=== PATIENT | female | born 1955 | race Caucasian/White ===

== ENCOUNTER 2019-06-01 22:32 | Emergency (ER) | payer MEDICARE, SELFPAY ==
[2019-06-01 23:27] LABS: #Basophils 0.1 thou/uL (0.0-0.2); #Eosinphils 0.4 thou/uL (0.0-0.7); #Lymphocytes 2.6 thou/uL (1.20-3.40); #Monocytes 0.4 thou/uL (0.11-0.59); %Basophils 1.1 % (0.0-1.0); %Eosinophils 4.2 % (0.0-10.0); %Lymphocytes 27.5 % (21.0-51.0); %Monocytes 4.2 % (0.0-10.0); Hemoglobin 15.3 g/dL (12.0-16.0); Mean Corpuscular HGB CONC 31.6 g/dL (32.0-36.0); Mean Corpuscular Hemoglobin 29.6 pg (27.0-31.0); Mean Corpuscular Volume 93.6 fL (78.0-98.0); Mean Platelet Volume 7.7 fL (7.4-10.4); Platelet Count 249 thou/uL (130-400); RBC Distribution Width 13.1 % (11.5-14.5); Red Blood Cell (RBC) Count 5.18 mill/uL (4.20-5.40); White Blood Cell (WBC) Count 9.5 thou/uL (4.8-10.8)
[2019-06-01 23:30] LABS: INR-International Normal Ratio 1.7; Prothrombin Time 19.7 SEC (12.0-14.7)
[2019-06-01 23:31] LABS: PTT 39.7 SEC (22.9-36.1)
[2019-06-01 23:34] LABS: Bilirubin Negative (Negative); Blood, Urine Trace (Negative); Glucose, Urine (Dipstick) 500 mg/dL (Negative); Leukocyte Negative (Negative); Nitrite Negative (Negative); Protein, Urine (Dipstick) Negative (Neg-Trace); Urobilinogen 0.2 mg/dL (Less than 2)
[2019-06-01 23:36] LABS: Clarity Hazy (Clear)
[2019-06-01 23:39] LABS: ALT (SGPT) 79 U/L (8-55); AST (SGOT) 63 U/L (5-34); Albumin 4.2 g/dL (3.4-4.8); Alkaline Phosphatase 168 U/L (40-110); Anion Gap 15 mmol/L (10-20); BUN (Urea Nitrogen) 14 mg/dL (9.8-20.1); Bilirubin, Total 0.5 mg/dL (0.2-1.2); Calc. Creatinine Clearance 0 mL/min (70-130); Calcium 10.1 mg/dL (7.8-10.44); Carbon Dioxide 28 mmol/L (23-31); Chloride 101 mmol/L (98-107); Estimated GFR-MDRD 54; Globulin 3.8 g/dL (2.4-3.5); Glucose 430 mg/dL (80-115); Potassium 3.7 mmol/L (3.5-5.1); Sodium 140 mmol/L (136-145)
[2019-06-01] MEDS ORDERED: Lantus 1000 UNITS/10 ML VIAL SC SCH (23:45)
[2019-06-01 23:47] LABS: RBC/HPF 0-3 HPF (0-3); Squamous Epithelial 0-3 HPF (0-3); Transitional Epithelial 0-3 HPF (None Seen); WBC/HPF 0-3 HPF (0-3)
[2019-06-01 23:48] LABS: Bacteria/HPF 1+ HPF (None Seen)
--- NOTE | 2019-06-02 08:06 | RAD ---
CHEST 2 VIEWS: DATE: 06/01/2019. FINDINGS: Comparison is made with the 03/31/2013 study. The heart is normal in size and the lungs are clear. There are no infiltrates or effusions. There i s no vascular congestion or edema. Mild degenerative changes are seen in the spine. The trachea is midline. IMPRESSION: No acute finding. POS: HOME
== END 2019-06-02 00:35 | disposition home or self-care (01) ==
LOC: BURERS 22:32
DX: E11.65 Type 2 diabetes mellitus with hyperglycemia (principal); R79.89 Other specified abnormal findings of blood chemistry; Z79.4 Long term (current) use of insulin; Z79.01 Long term (current) use of anticoagulants; Z79.899 Other long term (current) drug therapy
CPT/HCPCS: 36416; 71046; 80053; 81003; 81015; 85025; 85610; 85730; J1815

== ENCOUNTER 2022-03-04 10:49 | Emergency (ER) | payer MEDICARE ==
[2022-03-04 11:30] LABS: Bilirubin Negative (Negative); Blood, Urine Moderate (Negative); Clarity Cloudy (Clear); Glucose, Urine (Dipstick) Negative (Negative); Ketone, Urine Trace mg/dL (Negative); Leukocyte Small (Negative); Nitrite Negative (Negative); Protein, Urine (Dipstick) 100 mg/dL (Neg-Trace); Urobilinogen 0.2 mg/dL (Less than 2)
[2022-03-04 11:39] LABS: Bacteria/HPF 3+ HPF (None Seen); Renal Epithelial 0-3 HPF (None Seen); Squamous Epithelial 0-3 HPF (0-3); WBC/HPF Greater Than 50 HPF (0-3)
[2022-03-04 11:40] LABS: Calcium Oxalate Crystals Rare HPF (None Seen); Mucous/LPF 2+ LPF (<2+)
[2022-03-04] MEDS ORDERED: Ciprofloxacin 500 MG TAB ONE (12:05)
[2022-03-04] MEDS ORDERED: Phenazopyridine HCl 97.5 MG TABLET ONE (12:05)
== END 2022-03-04 12:18 | disposition home or self-care (01) ==
LOC: BURERS 10:49
DX: N39.0 Urinary tract infection, site not specified (principal); N32.89 Other specified disorders of bladder; R00.0 Tachycardia, unspecified; E11.9 Type 2 diabetes mellitus without complications; E03.9 Hypothyroidism, unspecified; Z98.890 Other specified postprocedural states
CPT/HCPCS: 51702; 51798; 81003; 81015; 87086

== ENCOUNTER 2022-07-17 22:39 | Emergency (ER) | payer MEDICARE ==
[2022-07-17] MEDS ORDERED: Acetaminophen 500 MG TAB ONE (23:14)
[2022-07-17] MEDS ORDERED: Dexamethasone 10 MG/ML VIAL ONE (23:14)
== END 2022-07-18 00:25 | disposition home or self-care (01) ==
LOC: BURERS 22:39
DX: J10.1 Influenza due to other identified influenza virus with other respiratory manifestations (principal); E11.9 Type 2 diabetes mellitus without complications; E03.9 Hypothyroidism, unspecified; Z79.4 Long term (current) use of insulin; Z79.01 Long term (current) use of anticoagulants; Z79.899 Other long term (current) drug therapy
CPT/HCPCS: 87081; 87430; 87804; 99283; J1100